=== PATIENT | female | born 1965 | race American Indian/Alaskan Native ===

== ENCOUNTER 2016-10-10 07:21 | Day surgery (SDC) | payer BC ==
[~2016-10-10 07:21] MED LIST: ANCEF/STERILE WATER 2 GM/20 ML 2 GM/20 ML SYRINGE IV NR; NACL 0.9% 1000 ML 1,000 ML IV SCH
[2016-10-10 09:10] LABS: Basophils % (Auto) 0.5 % (0.0-1.8); Eosinophils % (Auto) 0.3 % (0.0-4.3); Hematocrit 37.3 % (30.3-42.9); Hemoglobin 12.2 gm/dl (10.1-14.3); Mean Corpuscular HGB Conc 33 % (30-34); Mean Corpuscular Hemoglobin 28 pg (28-32); Mean Corpuscular Volume 86 fl (79-97); Platelet Count 198 K/mm3 (140-440); Red Blood Count 4.35 M/mm3 (3.65-5.03); Red Cell Distribution Width 15.2 % (13.2-15.2)
[2016-10-10 09:21] LABS: INR 2.48 (0.87-1.13)
[2016-10-10 09:22] LABS: BUN/Creatinine Ratio 13.33; Calcium 9.1 mg/dL (8.4-10.2); Chloride 95.8 mmol/L (98-107); Potassium 4.1 mmol/L (3.6-5.0)
[2016-10-10 09:23] LABS: Partial Thromboplastin Time 40.7 Sec. (24.2-36.6)
[2016-10-10] MEDS ORDERED: BENADRYL ONE (10:07)
[2016-10-10] MEDS ORDERED: HEPARIN 10,000 UNITS/10 ML ONE (10:07)
[2016-10-10] MEDS ORDERED: ANCEF/STERILE WATER 2 GM/20 ML 2 GM/20 ML SYRINGE IV ONE (10:08)
[2016-10-10] MEDS ORDERED: HEPARIN/NS 5000 UNIT/500ML(CATH LAB) 1,000 ML IR ONE (10:08)
[2016-10-10] MEDS: VERSED ONE ×2 (10:28→12:01)
[2016-10-10] MEDS: SUBLIMAZE ONE ×2 (10:28→11:31)
[2016-10-10] MEDS: XYLOCAINE 2% INFILTRATI ONE ×3 (10:32→11:26)
[2016-10-10] MEDS ORDERED: WATER FOR INJ (PF) 20 ML ONE (10:59)
[2016-10-10] MEDS ORDERED: CATHFLO ONE (10:59)
[2016-10-10] MEDS ORDERED: NACL 0.9% 50 ML ONE (11:13)
[2016-10-10] MEDS ORDERED: HEPARIN/NS 5000 UNIT/500ML(CATH LAB) 500 ML IR ONE (11:20)
[2016-10-10] MEDS ORDERED: SUBLIMAZE ONE (12:08)
--- NOTE | 2016-10-10 12:20 | Short Stay Summary ---
Short Stay Documentation Date of service: 10/10/16 - History Principal diagnosis: DVT H&P: obtained from office - Allergies and Medications Current Medications: Allergies Iodinated Contrast Media - IV Dye Allergy (Verified 10/10/16 08:41) Unknown skin peals Home Medications Medication Instructions Recorded Confirmed Last Taken Type Hydrochlorothiazide 25 mg PO DAILY 10/10/16 10/10/16 10/10/16 History [Hydrochlorothiazide] Rivaroxaban [Xarelto] 15 mg PO BID 10/10/16 10/10/16 10/10/16 History Active Medications Cefazolin Sodium (Ancef/Sterile Water 2 Gm/20 Ml) 2 gm in 20 mls @ 80 mls/hr IV PREOP NR PRN Reason: Protocol Stop: 10/10/16 23:59 Last Admin: 10/10/16 10:25 Dose: 20 mls Sodium Chloride (Nacl 0.9% 1000 Ml) 1,000 mls @ 42 mls/hr IV DIRECT ZOE Last Admin: 10/10/16 09:54 Dose: 42 mls/hr - Brief post op/procedure progress note Date of procedure: 10/10/16 Pre-op diagnosis: LLE DVT Post-op diagnosis: same Procedure: LLE thrombectomy, IVC filter placement Anesthesia: local Surgeon: ZION HARRISON Estimated blood loss: minimal Pathology: none Condition: stable - Disposition Condition at discharge: Good Disposition: DISCHARGED TO HOME OR SELFCARE Short Stay Discharge Plan Activity: advance as tolerated Weight Bearing Status: Weight Bear as Tolerated Diet: regular Wound: keep clean and dry, per your surgeon's advice Follow up with: PERRY CASTRO MD [Primary Care Provider] - 7 Days
--- NOTE | 2016-10-10 12:25 | Operative Report ---
Operative Report Operative Report: EXAM: LEFT LOWER EXTREMITY THROMBECTOMY, PLACEMENT OF IVC FILTER CLINICAL INDICATION: PATIENT WITH A HISTORY OF VENOUS INSUFFICIENCY WHO DEVELOPED ACUTE LEFT LOWER EXTREMITY ILIOFEMORAL DVT A. DATE: 10/10/2016 PROCEDURE: Following an excellent addition of the risks, benefits and alternatives; written informed consent was obtained. The patient was brought to the injury graphic suite and placed in supine position on the examination table. Initial ultrasound survey demonstrated a patent right common femoral vein. Patient's right groin was prepped and draped in the usual sterile fashion. 1% lidocaine was used for anesthesia. Under ultrasound guidance, the right common femoral vein was cannulated with a 7 cm 18-gauge needle. A 0.035 guidewire was advanced centrally under fluoroscopy. The needle was removed and following serial dilation, an IVC filter introducer sheath and trocar were advanced over the guidewire into the infrarenal IVC. Digital subtraction venography was performed at this point. This demonstrates no intraluminal thrombus within the IVC. The level of the lowest renal vein was noted. Appropriate size criteria is present. The trocar and guidewire were removed and an IVC filter advanced through the sheath and positioned to position the inferior aspect of the IVC filter at this inferior endplate of L2. Post placement venography demonstrated satisfactory positioning with no significant tilt. The catheter, guidewires and sheaths were removed and hemostasis achieved in the left groin using manual compression. A sterile dressing was then placed The patient was then turned prone. The patient's popliteal fossa was prepped and draped in the usual sterile fashion. 1% lidocaine was used for anesthesia. Under ultrasound guidance, the left popliteal vein was cannulated with a 7 cm 18 -gauge needle. A 0.035 guidewire was advanced centrally under fluoroscopy. The needle was removed and a 5 Mongolian sheath placed. A 4 Mongolian vertebral catheter was advanced over the guidewire and together the guidewire and catheter advanced centrally. Pullback venography was then performed which demonstrated thrombus extending from previously placed stents in the external iliac vein to the common femoral vein. The inferior superficial femoral vein is patent. Popliteal vein is patent. 10 mg of TPA was then pulse sprayed into the thrombus Dilaudid well for 20 minutes. Mechanical thrombectomy was then performed using AngioJet mechanical thrombectomy from common iliac vein to sheath insertion site. Post thrombectomy venoplasty was then performed using a 12 mm x 40 mm balloon insufflated to 10 quita for 30 seconds of multiple locations followed by a 14 mm x 4 mm balloon insufflated to 5 quita at multiple locations. Post thrombectomy and venoplasty imaging demonstrated improved luminal flow throughout the entire left lower extremity. A scattered areas of clot are present within the previously placed filter. The catheters, guidewires and she's were removed and hemostasis achieved in the popliteal fossa using manual compression. A sterile dressing was then applied. The patient tolerated both procedures well. There were no immediate post procedure competitions. Conscious sedation was performed under the guidance of radiologic nursing. Continuous cardiopulmonary monitoring was utilized. IMPRESSION: 1) Left lower extremity venogram demonstrating thrombus extending from the left external iliac vein to the left common femoral vein. 2) Mechanical and pharmacological of the left lower extremity. 3) Placement of the infrarenal IVC filter.
[2016-10-10 15:39] VITALS: BP 133/76
--- NOTE | 2016-10-13 07:33 | Vascular Lab Report ---
MISCELLANEOUS VESSEL IDENTIFICATION: COMMENTS ON THE SCAN: The right greater saphenous vein was identified and under real-time ultrasound guidance was cannulated. IMPRESSION: Successful ultrasound guided vein cannulation.
== END 2016-10-10 15:00 | disposition home or self-care (01) ==
LOC: OPU 07:21
PROVIDERS: ATTEND Radiology Diagnostic Radiology
DX: I82.412 Acute embolism and thrombosis of left femoral vein (principal); I10 Essential (primary) hypertension; Z85.41 Personal history of malignant neoplasm of cervix uteri; Z80.49 Family history of malignant neoplasm of other genital organs; Z83.3 Family history of diabetes mellitus; Z90.710 Acquired absence of both cervix and uterus; Z98.890 Other specified postprocedural states; Z79.899 Other long term (current) drug therapy
CPT/HCPCS: 36005; 36415; 37187; 37191; 37248; 37249; 75820; 76937; 80048; 85025; 85384; 85610; 85730; C1725; C1751; C1757; C1769; C1880; C1894; J0690; J1200; J1644; J2250; J2930; J2997; J3010; J7030; Q9967